=== PATIENT | female | born 1940 | race Caucasian/White ===

== ENCOUNTER → 2019-06-22 | Outpatient (CLI) | payer MEDICARE, BC ==
[~2019-06-22] MED LIST: ASMANEX220 MC2 IH; ASPIRIN325 PO; ATACAND32 MG PO; FOLIC ACID1 MG PO; HYDROCODONE-APA1 TA1 PO; KEFLEX500 MG PO; LIPOFEN150 MG PO; OMEGA-31000 M1 PO; PROCARDIA XL90 MG PO; TOPROL XL25 MG PO; ZOFRAN ODT4 MG DISSOLVE; [UNRECOGNIZED DRUG - OTHER] PO
--- NOTE | 2019-06-22 16:41 | 2DMMODE ---
[place] [address] 2 D/M-MODE ECHOCARDIOGRAM Name: SILVA SRIVASTAVA Room: [facility]#: [id number] Admission: 06/22/19 Attend Phys: Ava Porter Discharge: Date of : 42 Date of Service: 06/22/19 [facility] Report #: [id number] THIS REPORT FOR: //name// APPROVED REPORT Study performed: 06/22/2019 13:48:35 EXAM: Comprehensive 2D, Doppler, and color-flow Echocardiogram Patient Location: Out-Patient BSA: 2.20 HR: 62 bpm BP: 140/70 mmHg Other Information Study Quality: Fair Indications Atrial Fibrillation 2D Dimensions IVSd: 10.94 (7-11mm) LVOT Diam: 20.81 (18-24mm) LVDd: 55.81 mm PWd: 11.23 (7-11mm) Ascending Ao: 29.90 (22-36mm) LVDs: 34.33 (25-40mm) Aortic Root: 29.07 mm Volumes Left Atrial Volume (Systole) LA ESV Index: 30.90 mL/m2 Aortic Valve AoV Peak Howard.: 1.55 m/s AO Peak Gr.: 9.64 mmHg LVOT Max P.47 mmHg AO Mean Gr.: 4.31 mmHg LVOT Mean P.36 mmHg LVOT Max V: 1.17 m/s AO V2 VTI: 32.67 cm LVOT Mean V: 0.69 m/s VLADIMIR (VTI): 2.89 cm2 LVOT V1 VTI: 27.72 cm Mitral Valve E/A Ratio: 1.91 MV Decel. Time: 194.76 ms MV E Max Howard.: 0.98 m/s MV PHT: 56.48 ms MVA (PHT): 3.90 [place]2 [place] [address] 2 D/M-MODE ECHOCARDIOGRAM Name: SILVA SRIVASTAVA Room: [facility]#: [id number] Admission: 06/22/19 Attend Phys: Ava Porter Discharge: Date of : 42 Date of Service: 06/22/19 [facility] Report #: [id number] TDI E/Lateral E': 10.89 E/Medial E': 9.80 Medial E' Howard.: 0.10 m/s Lateral E' Howard.: 0.09 m/s Pulmonary Valve PV Peak Howard.: 0.92 m/s PV Peak Gr.: 3.36 mmHg Tricuspid Valve RAP Estimate: 5.00 mmHg TR Peak Gr.: 21.50 mmHg RVSP: 26.50 mmHg PA Pressure: 26.50 mmHg Left Ventricle The left ventricle is normal size. There is normal LV segmental wall motion. There is normal left ventricular wall thickness. Left ventricular systolic function is normal. The left ventricular ejection fraction is within the normal range. LVEF is 55-60%. The left ventricular diastolic function is normal. Right Ventricle The right ventricle is normal size. The right ventricular systolic function is normal. Atria Left atrium is mildly dilated. The right atrium size is normal. Aortic Valve Aortic valve is mildly calcified. No aortic regurgitation is present. There is no aortic valvular stenosis. Mitral Valve The mitral valve is normal in structure. Mild mitral regurgitation. No evidence of mitral valve stenosis. Tricuspid Valve The tricuspid valve is normal in structure. Mild tricuspid regurgitation. estimated pa pressure 35 mm Hg Pulmonic Valve The pulmonary valve is normal in structure. There is no pulmonic valvular regurgitation[place] [address] 2 D/M-MODE ECHOCARDIOGRAM Name: SILVA SRIVASTAVA Room: [facility]#: [id number] Admission: 06/22/19 Attend Phys: Ava Porter Discharge: Date of : 42 Date of Service: 06/22/19 1640 Report #: [id number] The aortic root is normal in size. IVC is normal in size and collapses >50% with inspiration. Pericardium There is no pericardial effusion. <Conclusion> LVEF is 55-60%. Left atrium is mildly dilated. Mild mitral regurgitation. <ELECTRONICALLY SIGNED> By: Dar Higginbotham MD, FACC 06/22/19 1640 1640 1640 Dar Higginbotham MD, FACC /INF
== END ==
LOC: M.CRD 13:41
DX: I08.1 Rheumatic disorders of both mitral and tricuspid valves (principal); I48.91 Unspecified atrial fibrillation

== ENCOUNTER → 2019-07-02 | Outpatient (CLI) | payer MEDICARE, BC ==
[2019-07-02 08:58] LABS: HEMATOCRIT 36.3 % (37.0-47.0); HEMOGLOBIN 12.3 gm/dL (12.0-15.0); MCH 28.7 pg (26.0-34.0); MCHC 33.7 g/dL (28.0-37.0); MCV 85.1 fL (80.0-100.0); MPV 7.8 fl. (7.2-11.1); RBC 4.27 mil/uL (4.20-5.00); RDW-CV 13.9 % (10.5-14.5); WBC 5.1 thou/uL (4.0-11.0)
[2019-07-02 09:10] LABS: ALBUMIN 3.7 g/dL (3.4-5.0); CALCIUM 9.2 mg/dL (8.5-10.1); CREATININE 1.6 mg/dL (0.6-1.3); POTASSIUM 4.2 mmol/L (3.5-5.1); TOTAL BILIRUBIN 0.5 mg/dL (<0.1-1.0); TOTAL PROTEIN 6.7 g/dL (6.4-8.2)
== END ==
LOC: M.LAB 06-24 12:21
PROVIDERS: Internal Medicine Cardiovascular Disease
DX: I48.91 Unspecified atrial fibrillation (principal); E04.2 Nontoxic multinodular goiter

== ENCOUNTER → 2019-07-06 | Outpatient (CLI) | payer MEDICARE, BC ==
[2019-07-06] VITALS (10 sets, daily range): BP systolic 123–175; BP diastolic 37–88
--- NOTE | 2019-07-06 13:14 | TEE ---
[place] [address] TRANSESOPHAGEAL ECHOCARDIOGRAM Name: SILVA SRIVASTAVA Room: [facility]#: [id number] Admission: 07/06/19 Attend Phys: Dar Higginbotham MD Discharge: Date of : 42 Date of Service: 07/06/19 1313 Report #: [id number] THIS REPORT FOR: //name// APPROVED REPORT Study performed: 07/06/2019 12:01:33 EXAM: Transesophageal Echocardiogram Patient Location: Out-Patient Status: routine BSA: 2.21 HR: 110 bpm BP: 165/88 mmHg Rhythm: Atrial Fibrillation Other Information Study Quality: Excellent Indications pre-ablation Echo Enhancing Agent Indication: Rule out Shunt Agent(s) / Amount(s) Used: Agitated Saline 20 cc Procedure After obtaining informed consent, patient underwent transesophageal echo in the [employer]. Type of Sedation : Conscious Sedation Sedation was administered by Benny Florez RN. Sedation start time: 1204 Case end Time: 1220 Sedation was achieved intravenously with: Versed (6) Fentanyl (75) Transesophageal probe was inserted and advanced into esophagus without difficulty by Andrea Lara MD, [facility]. Echo enhancement indication: R/O Septal defect. Echo enhancement agent administered: Agitated Saline The GUIDO was performed without complications. Throughout the procedure, the blood pressure, pulse oximetry, cardiac rhythm, and rate were monitored. The patient tolerated the procedure without adverse effects. Recovery from conscious sedation was uneventful and vital signs were stable. Left Ventricle [place] [id number] TRANSESOPHAGEAL ECHOCARDIOGRAM Name: SILVA SRIVASTAVA Room: [facility]#: [id number] Admission: 07/06/19 Attend Phys: Dar Higginbotham MD Discharge: Date of : 42 Date of Service: 07/06/19 1313 Report #: [id number] The left ventricle is normal size. There is normal LV segmental wall motion. There is normal left ventricular wall thickness. Left ventricular systolic function is normal. The left ventricular ejection fraction is within the normal range. LVEF is 60-65%. Right Ventricle The right ventricle is normal size. The right ventricular systolic function is normal. Atria Left atrium is dilated. No thrombus is visualized in the left atrium or appendage. Interatrial septum is intact without evidence of ASD or PFO. The right atrium size is normal. Aortic Valve The aortic valve is normal in structure. No aortic regurgitation is present. There is no aortic valvular stenosis. Mitral Valve The mitral valve is normal in structure. Mild mitral regurgitation. No evidence of mitral valve stenosis. Tricuspid Valve The tricuspid valve is normal in structure. There is no tricuspid valve regurgitation noted. Pulmonic Valve The pulmonary valve is normal in structure. There is no pulmonic valvular regurgitation. Great Vessels The aortic root is normal in size. Pericardium There is no pericardial effusion. <Conclusion> LVEF is 60-65%. Left atrium is dilated. No thrombus is visualized in the left atrium or appendage. [address] [address] TRANSESOPHAGEAL ECHOCARDIOGRAM Name: SILVA SRIVASTAVA Room: [facility]#: [id number] Admission: 07/06/19 Attend Phys: Dar Higginbotham MD Discharge: Date of : 42 Date of Service: 07/06/191312 Report #: [id number] Interatrial septum is intact without evidence of ASD or PFO. Mild mitral regurgitation. <ELECTRONICALLY SIGNED> By: Dar Higginbotham MD, FACC 07/06/19 1313 12 12 Dar Higginbotham MD, FACC /INF
--- NOTE | 2019-07-06 15:49 | EKG ---
[place] [address] ELECTROCARDIOGRAM REPORT Name: SILVA SRIVASTAVA Room: [facility]#: [id number] Admission: 07/06/19 Attend Phys: Dar Higginbotham MD, F Discharge: Date of : 42 Report #: [id number] THIS REPORT FOR: //name// [facility] Test Date: 2019-07-06 Test Time: 10:51:34 Pat Name: SILVA SRIVASTAVA Department: Room: Gender: F Appraiser: : 1940 Requested By: Dar Higginbotham Order Number: [id number] MD: Dar Higginbotham Measurements Intervals [place] Rate: 66 P: HI: QRS: 13 QRSD: 97 T: -12 QT: 389 QTc: 408 Interpretive Statements Atrial fibrillation Borderline repolarization abnormality No previous ECG available for comparison Electronically Signed On 07-06-2019 15:49:27 CDT by Dar Higginbotham [email or web address] <ELECTRONICALLY SIGNED> By: Dar Higginbotham MD, [facility] 07/06/19 1549 1051 1051 Dar Higginbotham MD, FACC /EPI
== END | disposition home or self-care (01) ==
LOC: M.CL 10:13
DX: I48.91 Unspecified atrial fibrillation (principal); I34.0 Nonrheumatic mitral (valve) insufficiency; Z79.01 Long term (current) use of anticoagulants; Z79.899 Other long term (current) drug therapy